=== PATIENT | male | born 1980 | race Caucasian/White ===

== ENCOUNTER 2021-05-14 18:47 | Emergency (ER) | payer SELFPAY ==
--- NOTE | ~2021-05-14 | XR_ITS ---
EXAMINATION: XR chest 2V DATE: 05/14/2021 19:49 INDICATION: Left-sided chest pain and sore throat TECHNIQUE: PA and lateral views of the chest are obtained. COMPARISON: None available FINDINGS: The lungs are free of acute opacities. There is no pleural effusion or pneumothorax. The ca rdiomediastinal silhouette is normal. The visualized bones and soft tissues are unremarkable. IMPRESSION: 1. No acute cardiopulmonary abnormality. Reviewed, dictated and finalized at location F. [facility]
[2021-05-14 19:08] VITALS: BP 114/70; PULSE 80; RESP 16; TEMP 36.6; O2SAT 100
--- NOTE | 2021-05-14 19:14 | ECG_ITS ---
Measurements Intervals [place] Rate: 76 P: 68 [place]: 135 QRS: 4 QRSD: 110 T: 23 QT: 376 QTc: 425 Interpretive Statements SINUS RHYTHM INCOMPLETE RIGHT BUNDLE BRANCH BLOCK BASELINE ARTIFACT- I, II, V2 BORDERLINE ECG Electronically Signed On 05-15-2021 6:30:34 CAT SCAN TECH by Asher Brenner D.O.
[2021-05-14 19:33] LABS: Basophils Absolute Auto 0.1 K/mm3 (0.0-0.1); Basophils Percent Auto 0.8 % (0.2-1.2); Eosinophils Absolute Auto 0.1 K/mm3 (0-0.3); Eosinophils Percent Auto 0.8 % (0-4.4); Hematocrit 43.6 % (42.0-52.0); Hemoglobin 14.2 g/dL (14.0-18.0); Immature Granulocyte Absolute 0.02 K/mm3 (0.00-0.031); Immature Granulocyte Percent A 0.2 % (0-0.5); Lymphocytes Percent Auto 15.6 % (18.3-44.2); Mean Corpuscular HGB Conc 32.6 g/dl (32-36); Mean Corpuscular Hemoglobin 29.9 pg (26-34); Mean Corpuscular Volume 91.8 fl (80-100); Mean Platelet Volume 8.1 fl (7.4-10.4); Monocytes Percent Auto 11.6 % (2.6-8.5); Neutrophils Absolute Auto 5.9 K/mm3 (1.3-6.7); Platelet Count Result 287 k/mm3 (150-375); Red Blood Count 4.75 M/mm3 (4.6-6.20); Red Cell Distribution Width 12.5 % (11.5-14.5); White Blood Count 8.3 K/mm3 (4.5-10.0)
[2021-05-14 19:43] LABS: Prothrombin Time 12.8 Seconds (11.1-14.7)
[2021-05-14 19:44] LABS: Partial Thromboplastin Time 28.5 SECONDS (22.3-36.8)
[2021-05-14 19:45] LABS: Alanine Aminotransferase 38 U/L (4-50); Albumin Level 4.7 g/dL (3.5-5.1); Alkaline Phosphatase 65 U/L (38-126); Anion Gap 9 mmol/L (8-16); Aspartate Amino Transferase 35 U/L (17-59); Bilirubin,Total 0.3 mg/dL (0.2-1.3); Blood Urea Nitrogen 12 mg/dL (9-20); Calcium 8.9 mg/dL (8.4-10.2); Carbon Dioxide 29 mmol/L (22-30); Chloride 99 mmol/L (98-107); Estimated Glomerular Filt Rate > 60; Glucose 108 mg/dL (65-110); Lipase 84 U/L (23-300); Sodium 137 mmol/L (137-145)
[2021-05-14 19:56] LABS: Troponin I < 0.012 ng/mL (0.000-0.034)
[2021-05-14 21:52] VITALS: BP 122/73; PULSE 81; RESP 16; O2SAT 100
[2021-05-14 23:25] LABS: Troponin I < 0.012 ng/mL (0.000-0.034)
[2021-05-14 23:30] VITALS: BP 127/80; PULSE 86; RESP 14; O2SAT 98
--- NOTE | 2021-05-14 23:30 | PC.NURSE ---
given 4 baby asa at urgent care
[2021-05-14 23:31] VITALS: PULSE 86
[2021-05-14 23:32] VITALS: O2SAT 99
--- NOTE | 2021-05-14 23:37 | ED.CHESTPAIN ---
HPI - Chest Pain General Chief Complaint: Chest Pain Stated Complaint: multi c/o sent from [facility] Time Seen by Provider: 05/14/21 23:24 Source: patient and RN notes reviewed Mode of arrival: ambulatory Limitations: no limitations History of Present Illness HPI narrative: This is a healthy 40 year old who presents for evaluation of left chest pain. Patient went to an urgent care today for evaluation of possible covid symptoms. Patient developed sore throat, nasal congestion and cough yesterday. Today he felt like he was short of breathing and he is having mild intermittent left anterior chest pain. He describes chest pain has pins and needles that last only a few seconds. This pain is nonradiating and he denies any exacerbating factors. He told that he was having this chest pain so he was referred to ER. He reports having negative influenza and his covid PCR is pending. He denies chest pain at this time. Related Data Home Medications Medication Instructions Recorded Confirmed No Home Medications 05/14/21 05/14/21 Allergies Allergy/AdvReac Type Severity Reaction Status Date / Time No Known Allergies Allergy Verified 05/14/21 23:34 Review of Systems Review of Systems: All systems reviewed & are unremarkable except as noted in HPI and below Constitutional: Constitutional: Denies chills, Reports fatigue and Denies fever(s) ENT: Reports nasal congestion and Reports sore throat Cardiovascular: Cardiovascular: Reports chest pain Respiratory: Respiratory: Reports cough and Reports dyspnea Gastrointestinal: Gastrointestinal: Denies abdominal pain, Denies diarrhea, Denies nausea and Denies vomiting Neurologic: Reports headache(s) PMFSH Past Medical History Medical History (Updated 05/15/21 @ 01:56 by Delmy Wade MD) Patient denies medical problems Surgical History Surgical History (Updated 05/14/21 @ 23:38 by Delmy Wade MD) No pertinent past surgical history Exam Narrative: GENERAL: Well-appearing, well-nourished, and in no acute distress. HEAD: Normocephalic, atraumatic EYES: PERRLA and EOMI, conjunctiva clear without discharge EARS: TM's clear bilaterally without erythema or dullness NOSE: Nares clear, no rhinorrhea or epistaxis THROAT:Mucous membranes moist, Oropharynx normal without erythema, exudate, peritonsillar swelling or fluctuance NECK: Supple, without lymphadenopathy or mass RESPIRATORY: No respiratory distress, Airway patent, Respirations non-labored, Clear to auscultation without rales, rhonchi or wheeze HEART: Regular rate and rhythm. No murmur heard. Normal peripheral pulses. ABDOMEN: Soft, nontender, nondistended, normal active bowel sounds. No masses. No rebound or guarding, No organomegaly. EXTREMITIES: No edema, normal strength with full range of motion. SKIN: Warm, dry, normal color without rash NEURO: Alert and oriented x3. CN 2-12 grossly intact. No focal deficits. PSYCH: Normal mood and affect. Course Reevaluation(s) Reevaluation #1: I discussed with patient his evaluation is unremarkable. His chest pain is atypical. HE is stable for discharge home. Date: 05/15/21 Time: 01:53 Vital Signs Vital signs: Vital Signs Temperature 97.9 F 05/14/21 19:08 Pulse Rate 80 05/14/21 19:08 Respiratory Rate 16 05/14/21 19:08 Blood Pressure 114/70 05/14/21 19:08 Pulse Oximetry 100 05/14/21 19:08 Temperature 97.9 F 05/14/21 19:08 Pulse Rate 64 05/15/21 01:29 Respiratory Rate 16 05/15/21 01:29 Blood Pressure 122/81 05/15/21 01:29 Pulse Oximetry 99 05/15/21 01:29 MDM - Chest Pain Lab Data Attestation: I reviewed the patient's lab results. Result diagrams: 05/14/21 19:26 05/14/21 19:26 Labs: Lab Results 05/14/21 05/14/21 05/14/21 Range/Units 19:26 19:26 19:26 WBC 8.3 (4.5-10.0) K/mm3 RBC 4.75 (4.6-6.20) M/mm3 Hgb 14.2 (14.0-18.0) g/dL Hct 43.6 (42.0-52.0) % MCV
[2021-05-15 01:29] VITALS: BP 122/81; PULSE 64; RESP 16; O2SAT 99
[2021-05-15 01:47] LABS: D Dimer 0.27 ug/mL (<0.48)
[2021-05-15 02:24] VITALS: BP 123/87; PULSE 72; RESP 16; O2SAT 100
== END 2021-05-15 02:25 | disposition home or self-care (01) ==
PROVIDERS: Emergency Medicine; Emergency Provider General Practice; PCP Emergency Medicine
DX: R07.89 Other chest pain (principal); Z20.822 Contact with and (suspected) exposure to COVID-19; I45.10 Unspecified right bundle-branch block
CPT/HCPCS: 36415; 71046; 80053; 83690; 84484; 85025; 85380; 85610; 85730; 93005; 99284